=== PATIENT | female | born 1995 | race Caucasian/White ===

== ENCOUNTER 2017-05-30 23:41 | Emergency (ER) | payer OTHER, MEDICAID ==
[~2017-05-30] VITALS: Ht 160 cm; Wt 45.4 kg
[2017-05-30] MEDS ORDERED: birth control (23:51)
[2017-05-31] MEDS ORDERED: PROMETHAZINE V473 ML PO (00:27)
[2017-05-31] MEDS ORDERED: ACETAMINOPHEN-1 EAC1 PO (00:27)
[2017-05-31] MEDS ORDERED: OSELB75 PO (00:27)
[2017-05-31] MEDS ORDERED: TESSALON PERLE100 MG PO (00:27)
[2017-05-31] MEDS ORDERED: PHENERGAN 25 MG25 M1 PO (00:27)
[2017-05-31 00:48] VITALS: BP 134/71
[2017-05-31 00:54] LABS: INFLUENZA A ANTIGEN None Detected (None Detect)
== END 2017-05-31 00:48 | disposition home or self-care (01) ==
LOC: M.ERS 23:41
PROVIDERS: Family Medicine
DX: J11.1 Influenza due to unidentified influenza virus with other respiratory manifestations (principal)